=== PATIENT | male | born 2000 | race Caucasian/White ===

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

== ENCOUNTER 2019-01-29 05:31 | Emergency (ER) | payer SELFPAY ==
[2019-01-29] MEDS ORDERED: CLONIDINE HCL 0.2 MG TABLET PO ONE (06:26)
--- NOTE | 2019-01-29 06:38 | ER Document Report ---
Addendum entered and electronically signed by RAFAELA MCKEON DO 01/30/19 10:08: Discharge - Discharge Clinical Impression: Suicidal ideation Condition: Good Disposition: HOME, SELF-CARE Additional Instructions: You have been evaluated by medical and behavioral health teams have been deemed appropriate for discharge. Please follow-up with your outpatient mental health provider for your continued outpatient services. You have been provided prescriptions of Zyprexa 5 mg twice daily and Cogentin 1 mg daily; please take as directed. DEPRESSION: Your evaluation reveals that you have mental depression. While symptoms may be vague, they often include disturbance of sleep, fatigue, loss of appetite, and general loss of interest in life. While depression may be a side effect of drugs, or a reaction to a major change in your life, many cases have no known cause. If depression is acute, and related to a major loss in your life, you can expect it to clear completely with time. If you have been depressed a long time, are prone to repeated bouts of depression or low mood, or have been thinking of suicide, get help. Depression can be treated with anti-depressant medication and counselling. Long-term depression will often take a few weeks to clear, even with appropriate medication. Follow-up care is important. SUICIDAL IDEATION: Suicidal ideation is a common medical term for thoughts about suicide, which may be as detailed as a formulated plan, without the suicidal act itself. Although most people who undergo suicidal ideation do not commit suicide, some go on to make suicide attempts. The range of suicidal ideation varies greatly from fleeting to detailed planning, role playing, and unsuccessful attempts. While thoughts about suicide are common, most people do not carry out ser ious actions to commit suicide. Based upon your evaluation and discussion with you, we do not believe you are currently at risk to act upon your thoughts of suicide. You have agreed to return to the Emergency Department, at any time, if you feel inclined to act upon your suicidal thoughts. FOLLOW-UP CARE: If you experience worsening or a significant change in your symptoms, notify the physician immediately or return to the Emergency Department at any time for re- evaluation. Referrals: [facility] [Outside] - Follow up in 3-5 days [facility] [Outside] - Follow up as needed Addendum entered and electronically signed by COLLEEN ADAME LCSWA 01/30/19 08:40: Discharge - Discharge Clinical Impression: Suicidal ideation Condition: Good Disposition: HOME, SELF-CARE Additional Instructions: You have been evaluated by medical and behavioral health teams have been deemed appropriate for discharge. Please follow-up with your outpatient mental health provider for your continued outpatient services. You have been provided prescriptions of Zyprexa 5 mg twice daily and Cogentin 1 mg daily; please take as directed. DEPRESSION: Your evaluation reveals that you have mental depression. While symptoms may be vague, they often include disturbance of sleep, fatigue, loss of appetite, and general loss of interest in life. While depression may be a side effect of drugs, or a reaction to a major change in your life, many cases have no known cause. If depression is acute, and related to a major loss in your life, you can expect it to clear completely with time. If you have been depressed a long time, are prone to repeated bouts of depression or low mood, or have been thinking of suicide, get help. Depression can be treated with anti-depressant medication and counselling. Long-term depression will often take a few weeks to clear, even with appropriat e medication. Follow-up care is important. SUICIDAL IDEATION: Suicidal ideation is a common medical term for thoughts about suicide, which may be as detailed as a formulated plan, without the suicidal act itself. Although most people who undergo suicidal ideation do not commit suicide, some go on to make suicide attempts. The range of suicidal ideation varies greatly from fleeting to detailed planning, role playing, and unsuccessful attempts. While thoughts about suicide are common, most people do not carry out serious actions to commit suicide. Based upon your evaluation and discussion with you, we do not believe you are currently at risk to act upon your thoughts of suicide. You have agreed to return to the Emergency Department, at any time, if you feel inclined to act upon your suicidal thoughts. FOLLOW-UP CARE: If you experience worsening or a significant change in your symptoms, notify the physician immediately or return to the Emergency Department at any time for re- evaluation. Referrals: [facility] [Outside] - Follow up as needed [facility] [Outside] - Follow up in 3-5 days Original Note: ED Psych Disorder / Suicide - General Chief Complaint: Suicidal Ideation Stated Complaint: SUICIDAL IDEATION Time Seen by Provider: 01/29/19 06:03 Notes: 18-year-old male with history of mental illness presents to the emergency department complaining of suicidal thoughts. Patient has no specific plan. She stated his left him 2 days ago. She wanted a divorce. Patient stated he is been very despondent and upset. He is having thoughts of suicide. He has not had a prior attempt before. The patient usually sees [facility] and then [facility]. The patient is supposed to be on Zyprexa Cogentin clonidine and Prozac. However he freely admits that he is not taking his medications. He denies any visual auditory hallucinations. States he has been feeling very depressed. TRAVEL OUTSIDE OF THE [place] IN LAST 30 DAYS: No - Related Data Allergies/Adverse Reactions: brompheniramine maleate [From Rondec] Allergy (Verified 01/29/19 05:40) carbinoxamine maleate [From Rondec] Allergy (Verified 01/29/19 05:40) clarithromycin [From Biaxin] Allergy (Verified 01/29/19 05:40) codeine [Codeine] Allergy (Verified 01/29/19 05:40) penicillin G [Penicillin G] Allergy (Verified 01/29/19 05:40) pseudoephedrine HCl [From Rondec] Allergy (Verified 01/29/19 05:40) rofecoxib [From Vioxx] Allergy (Verified 01/29/19 05:40) Past Medical History - Social History Smoking Status: Unknown if Ever Smoked Family History: Reviewed & Not Pertinent Patient has suicidal ideation: Yes Patient has homicidal ideation: No - Past Medical History Cardiac Medical History: Reports: Hx Hypertension Pulmonary Medical History: Reports: Hx Asthma Endocrine Medical History: Reports: Hx Diabetes Mellitus Type 2 - no meds Renal/ Medical History: Denies: Hx Peritoneal Dialysis GI Medical History: Reports: Hx Gastroesophageal Reflux Disease Musculoskeletal Medical History: Reports Hx Musculoskeletal Deformity, Reports Hx Musculoskeletal Trauma Psychiatric Medical History: Reports: Hx Anxiety, Hx Bipolar Disorder, Hx Depression Traumatic Medical History: Reports: Hx Fractures - Right hand Past Surgical History: Reports: Hx Myringotomy, Hx Orthopedic Surgery - Rt hand r/t fx; Lt ACL - Immunizations Immunizations up to date: Yes Hx Diphtheria, Pertussis, Tetanus Vaccination: Yes Review of Systems - Review of Systems Constitutional: denies: Chills, Fever Cardiovascular: denies: Chest pain, Dyspnea Gastrointestinal: denies: Abdominal pain, Nausea, Vomiting Neurological/Psychological: Depression, Suicidal ideation. denies: Headaches, Speech impairment -: Yes All other systems reviewed and negative Physical Exam - Vital signs Vitals: Temp Pulse Resp BP Pulse Ox 99.4 F 107 H 18 175/107 H 96 01/29/19 05:41 01/29/19 05:41 01/29/19 05:41 01/29/19 05:41 01/29/19 05:41 - Notes Notes: GENERAL_APPEARANCE: well_nourished, alert, cooperative, no_acute_distress, no_obvious_discomfort. VITALS: reviewed, see vital signs table. HEAD: no_swelling\tenderness on the head. EYES: PERRL, EOMI, conjunctiva_clear. NOSE: no_nasal_discharge. MOUTH: (-)decreased moisture. THROAT: no_tonsilar_inflammation, no_airway_obstruction. no_lymphadenopathy NECK: supple, no_neck_tenderness, (-)thyromegaly. BACK: no_back_tenderness. CHEST_WALL: no_chest_tenderness. LUNGS: no_wheezing, no_rales, no_rhonchi, (-)accessory muscle use, good air exchange bilateral. HEART: normal_rate, normal_rhythm, normal_S1, normal_S2, (-)S3, (-)S4, no_murmur, no_rub. ABDOMEN: normal_BS, soft, no_abd_tenderness, (-)guarding, (-)rebound, no_organomegaly, no_abd_masses. EXTREMITIES: strength 5/5 in all_extremities, good pulses in all_extremities, no_swelling\tenderness in the extremities, no_edema. SKIN: warm, dry, good_color, no_rash. MENTAL_STATUS: speech_clear, oriented_X_3, normal_affect, responds_appropri ately to questions. PSYCH: Patient states he is considering suicide but has no specific plan. Peggy ent denies homicidal ideation denies visual auditory hallucinations. Patient seems to have insight and reasonable judgment he is not labile but appears to be trouble. Course - Re-evaluation Re-evalutation: 01/29/19 06:37 18-year-old male presents with suicidal thoughts. He does have a long psychiatric history. Patient is off his medications. We will do the usual psychiatric labs. Pressure is noted to be elevated he was on clonidine. We will give him a dose of that. Is also very anxious heart rate is up blood pressure is up this is likely due to the situation of being in the hospital. He has no headache no extremity numbness tingling or weakness. This is asymptomatic. Blood work is back. Patient had mildly elevated calcium but this may be more to just mild dehydration. Nothing acute needs to be done here. Urine had some contamination but there is only 1-2 white cells in his urine my suspicion for infection is very low. The patient will be medically stable for inpatient psychiatric care. We will await psychiatry's input and consultation. 01/29/19 09:41 - Vital Signs Vital signs: Temp Pulse Resp BP Pulse Ox 99.4 F 107 H 18 175/107 H 96 01/29/19 05:41 01/29/19 05:41 01/29/19 05:41 01/29/19 05:41 01/29/19 05:41 - Laboratory Result Diagrams: 01/29/19 06:42 01/29/19 08:36 Laboratory results interpreted by me: 01/29/19 01/29/19 01/29/19 06:42 07:30 08:36 WBC 13.1 H Seg Neutrophils % 79.9 H Absolute Neutrophils 10.5 H Chloride 108 H Glucose 115 H Calcium 10.5 H ALT 73 H Urine Urobilinogen 4.0 H Salicylates < 1.0 L Acetaminophen < 10 L Discharge - Discharge Clinical Impression: Suicidal ideation Condition: Good
[2019-01-29 07:02] LABS: ABSOLUTE BASOPHILS # (AUTO) 0.1 10^3/uL (0.0-0.2); ABSOLUTE EOSINOPHILS # (AUTO) 0.1 10^3/uL (0.0-0.6); ABSOLUTE LYMPHOCYTES (AUTO) 1.9 10^3/uL (0.5-4.7); ABSOLUTE MONOCYTES (AUTO) 0.5 10^3/uL (0.1-1.4); ABSOLUTE NEUT (AUTO) 10.5 10^3/uL (1.7-8.2); BASOPHILS % (AUTO) 0.7 % (0-2); EOSINOPHILS % (AUTO) 0.6 % (0-6); HEMATOCRIT 45.6 % (37.9-51.0); HEMOGLOBIN 16.1 g/dL (13.5-17.0); LYMPHOCYTES % (AUTO) 14.6 % (13-45); MEAN CORPUSCULAR HEMOGLOBIN 31.1 pg (27.0-33.4); MEAN CORPUSCULAR HGB CONC 35.3 g/dL (32.0-36.0); MEAN CORPUSCULAR VOLUME 88 fl (80-97); MONOCYTES % (AUTO) 4.2 % (3-13); PLATELET COUNT 202 10^3/uL (150-450); RED BLOOD COUNT 5.17 10^6/uL (4.35-5.55); RED CELL DISTRIBUTION WIDTH 13.3 % (11.5-14.0); SEGMENTED NEUTROPHILS % (AUTO) 79.9 % (42-78); TOTAL CELLS COUNTED % (AUTO) 100 %; WHITE BLOOD COUNT 13.1 10^3/uL (4.0-10.5)
[2019-01-29 09:08] LABS: ALANINE AMINOTRANSFERASE 73 U/L (10-40); ALBUMIN 4.6 g/dL (3.7-5.6); ALKALINE PHOSPHATASE 127 U/L (65-260); ANION GAP 10 (5-19); ASPARTATE AMINO TRANSFERASE 34 U/L (10-45); BILIRUBIN,DIRECT 0.3 mg/dL (0.0-0.4); BILIRUBIN,TOTAL 0.5 mg/dL (0.2-1.3); BLOOD UREA NITROGEN 12 mg/dL (7-20); CALCIUM 10.5 mg/dL (8.4-10.2); CARBON DIOXIDE 26 mmol/L (22-30); CHLORIDE 108 mmol/L (98-107); GLUCOSE 115 mg/dL (75-110); POTASSIUM 4.2 mmol/L (3.6-5.0); TOTAL PROTEIN 7.4 g/dL (6.3-8.2)
[2019-01-29 09:11] LABS: ACETAMINOPHEN < 10 ug/mL (10-30); ALCOHOL < 10 mg/dL (NONE DETECTED); SALICYLATE < 1.0 mg/dL (2.0-20.0)
[2019-01-29 09:20] LABS: APPEARANCE,URINE CLEAR; BILIRUBIN,URINE NEGATIVE (NEGATIVE); COLOR,URINE YELLOW; GLUCOSE, URINE NEGATIVE (NEGATIVE); KETONES,URINE NEGATIVE (NEGATIVE); LEUKOCYTE ESTERASE,URINE NEGATIVE (NEGATIVE); NITRITE,URINE NEGATIVE (NEGATIVE); PROTEIN,URINE NEGATIVE (NEGATIVE); URINE SPECIFIC GRAVITY 1.029
[2019-01-29 09:28] LABS: URINE AMPHETAMINES SCREEN NEGATIVE; URINE BARBITURATES SCREEN NEGATIVE; URINE BENZODIAZEPINES SCREEN NEGATIVE; URINE COCAINE SCREEN NEGATIVE; URINE MARIJUANA (THC) SCREEN NEGATIVE; URINE METHADONE SCREEN NEGATIVE; URINE PHENCYCLIDINE SCREEN NEGATIVE
--- NOTE | 2019-01-29 10:27 | EKG REPORT ---
SEVERITY:- OTHERWISE NORMAL ECG - SINUS TACHYCARDIA : Confirmed by: Angelina Harper MD 29-Jan-2019 10:26:00
[2019-01-29] MEDS: BENZTROPINE MESYLATE 1 MG TABLET PO SCH (11:05)
[2019-01-29] MEDS: OLANZAPINE 5 MG TABLET PO SCH ×2 (11:05→17:54)
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
--- NOTE | 2019-01-30 10:06 | ER Document Report ---
Doctor's Note Notes: 01/30/19 10:05 Patient interviewed and examined. Feeling improved today. Spoke with his yesterday, they do have a plan in place to potentially reconcile. Patient denies any current suicidal or homicidal ideations. Comfortable with discharge medications and plan. Notified as to [id number] fink, within his budget, for these medications. Affect is mildly depressed but patient is cooperative, pleasant. Heart is regular rate and rhythm, lungs are clear to auscultation bilaterally. Skin is warm and dry. Plan is to discharge with follow-up, 2 weeks of August Cerna. He understands he is to return with any return of suicidal thoughts or any changes.
[2019-01-30] MEDS: BENZTROPINE MESYLATE 1 MG TABLET PO SCH (10:10)
[2019-01-30] MEDS: OLANZAPINE 5 MG TABLET PO SCH (10:11)
[2019-01-30 10:39] VITALS: BP 137/88
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
== END 2019-01-30 10:21 | disposition home or self-care (01) ==
LOC: ER 05:31
DX: R45.851 Suicidal ideations (principal); F31.9 Bipolar disorder, unspecified; Z63.0 Problems in relationship with spouse or partner; Z88.6 Allergy status to analgesic agent; Z88.0 Allergy status to penicillin; I10 Essential (primary) hypertension; E11.9 Type 2 diabetes mellitus without complications
CPT/HCPCS: 36415; 80053; 80307; 81001; 83735; 85025; 93005; 93010; 99285

== ENCOUNTER 2019-03-04 11:02 | Emergency (ER) | payer SELFPAY ==
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
[2019-03-04] MEDS ORDERED: IBUPROFEN 600 MG TABLET PO ONE (12:19)
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
[2019-03-04 13:13] VITALS: BP 142/80
== END 2019-03-04 13:19 | disposition home or self-care (01) ==
LOC: ER 11:02
DX: S62.314A Displaced fracture of base of fourth metacarpal bone, right hand, initial encounter for closed fracture (principal); W22.01XA Walked into wall, initial encounter; F17.200 Nicotine dependence, unspecified, uncomplicated; I10 Essential (primary) hypertension; E11.9 Type 2 diabetes mellitus without complications; J45.909 Unspecified asthma, uncomplicated
CPT/HCPCS: 99283

== ENCOUNTER 2019-04-28 10:26 | Emergency (ER) | payer MEDICAID ==
[2019-04-28] MEDS ORDERED: IBUPROFEN 800 MG TABLET PO ONE (11:53)
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
[2019-04-28 12:35] VITALS: BP 156/94
== END 2019-04-28 12:32 | disposition home or self-care (01) ==
LOC: ER 10:26
DX: M54.89 Other dorsalgia (principal); I10 Essential (primary) hypertension; J45.909 Unspecified asthma, uncomplicated; Z72.0 Tobacco use
CPT/HCPCS: 99283; J3490

== ENCOUNTER 2019-05-16 00:09 | Emergency (ER) | payer MEDICAID ==
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
[2019-05-16 03:39] VITALS: BP 144/90
== END 2019-05-16 03:45 | disposition home or self-care (01) ==
LOC: ER 00:09
DX: S62.312A Displaced fracture of base of third metacarpal bone, right hand, initial encounter for closed fracture (principal); W22.09XA Striking against other stationary object, initial encounter; R20.0 Anesthesia of skin; I10 Essential (primary) hypertension; E11.9 Type 2 diabetes mellitus without complications
CPT/HCPCS: 99283